=== PATIENT | female | born 1985 | race Caucasian/White ===

== ENCOUNTER 2021-11-02 05:33 | Day surgery (SDC) | payer BC, OTHER ==
[2021-10-28 16:28] VITALS: BMI 20.9
[2021-11-02] MEDS ORDERED: PROPOFOL 20 ML ONE ×4 (11:55→11:57)
[2021-11-02] MEDS ORDERED: SUCCINYLCHOLINE CHLORIDE 200 MG/10 ML SYRINGE ONE (11:57)
[2021-11-02] MEDS ORDERED: MIDAZOLAM HCL 2 MG/2 ML SINGLE DOSE VIAL ONE (11:58)
[2021-11-02] MEDS ORDERED: ONDANSETRON 4 MG/2 ML VIAL IVPUSH PRN (12:34)
[2021-11-02] MEDS ORDERED: oxyCODONE HCL 5 MG TABLET PO PRN (12:34)
[2021-11-02] MEDS ORDERED: PROMETHAZINE HCL 25 MG/1 ML VIAL IVPUSH PRN (12:34)
[2021-11-02 13:12] VITALS: RESP 20
[2021-11-02] MEDS ORDERED: oxyCODONE HCL 10 MG SUSTAINED ACTING TABLET ONE (13:26)
[2021-11-02 14:26] VITALS: TEMP 97.8
[2021-11-02 14:41] VITALS: BP 105/62; PULSE 72
== END 2021-11-02 14:45 | disposition home or self-care (01) ==
LOC: EDBD → JASU-SURG 05:33
PROVIDERS: ATTEND Urology
PROC: 0T7D8ZZ Dilation of Urethra, Via Natural or Artificial Opening Endoscopic (ICD-10-PCS; principal; 2021-11-02 11:00)
DX: N35.92 Unspecified urethral stricture, female (principal); N32.89 Other specified disorders of bladder
CPT/HCPCS: 81025; 94760